=== PATIENT | male | born 1970 | race Caucasian/White ===

== ENCOUNTER 2022-03-10 03:00 | Emergency (ER) | payer SELFPAY ==
[2022-03-10] MEDS ORDERED: Ketorolac Tromethamine 60 MG/2 ML VIAL ONE (03:25)
[2022-03-10] MEDS ORDERED: Boostrix 0.5 ML (Tdap) VIAL ONE (03:25)
[2022-03-10] MEDS ORDERED: Bacitracin 1 PK ONE (03:25)
[2022-03-10] MEDS ORDERED: Sulfameth/Trimethoprim DS 800-160mg TAB ONE (03:26)
== END 2022-03-10 03:46 | disposition home or self-care (01) ==
LOC: NAV ERS 03:00
DX: S60.511A Abrasion of right hand, initial encounter (principal); L03.113 Cellulitis of right upper limb; X58.XXXA Exposure to other specified factors, initial encounter
CPT/HCPCS: 90471; 90715; 96372; J1885

== ENCOUNTER 2023-05-09 00:36 | Emergency (ER) | payer SELFPAY ==
[2023-05-09] MEDS ORDERED: predniSONE 20 MG TAB ONE (01:15)
== END 2023-05-09 01:20 | disposition home or self-care (01) ==
LOC: NAV ERS 00:36
DX: L29.8 Other pruritus (principal)
CPT/HCPCS: 99282; J7512

== ENCOUNTER 2023-08-26 18:43 | Emergency (ER) | payer SELFPAY ==
[2023-08-26] MEDS ORDERED: Ketorolac Tromethamine 60 MG/2 ML VIAL ONE (19:40)
== END 2023-08-26 20:08 | disposition home or self-care (01) ==
LOC: NAV ERS 18:43
DX: M54.50 Low back pain, unspecified (principal); G89.29 Other chronic pain
CPT/HCPCS: 96372; 99283; J1885

== ENCOUNTER 2025-08-08 10:27 | Emergency (ER) | payer SELFPAY | END 2025-08-08 10:56 | disposition home or self-care (01) | LOC: NAV ERS 10:27 | DX: S01.01XD Laceration without foreign body of scalp, subsequent encounter (principal); I10 Essential (primary) hypertension ==